=== PATIENT | female | born 1975 ===

== ENCOUNTER 2025-08-21 09:21 | Day surgery (SDC) | payer BC, OTHER ==
[~2025-08-21 09:21] MED LIST: Sodium Chloride 0.9% 10 ML Syringe FLUSH PRN; Sodium Chloride 0.9% 2.5 ML Syringe FLUSH PRN
[2025-08-21] MEDS: Lactated Ringers 1,000 ML IV SCH (09:45)
[2025-08-21] MEDS ORDERED: Ketamine HCL/NACL, ISO-OSM 50 MG/5 ML Syringe ONE (10:50)
[2025-08-21] MEDS ORDERED: Ondansetron 4 MG/2 ML SDV ONE (10:51)
[2025-08-21] MEDS ORDERED: Propofol 200 MG/20 ML SDV ONE (10:56)
== END 2025-08-21 11:45 | disposition home or self-care (01) ==
LOC: MW.SDS 09:21
PROVIDERS: ATTEND Surgery
DX: Z12.11 Encounter for screening for malignant neoplasm of colon (principal); J45.909 Unspecified asthma, uncomplicated; E11.9 Type 2 diabetes mellitus without complications; F32.A Depression, unspecified; F41.9 Anxiety disorder, unspecified; E66.9 Obesity, unspecified; Z68.37 Body mass index [BMI] 37.0-37.9, adult; Z79.899 Other long term (current) drug therapy
CPT/HCPCS: 45378; J2405; J2704; J7120; 00812; J3490